=== PATIENT | male | born 1985 | race Caucasian/White ===

== ENCOUNTER 2017-01-01 17:28 | Emergency (ER) | payer BC, OTHER ==
[2017-01-01 17:49] VITALS: BP 136/93
--- NOTE | 2017-01-01 17:56 | EDM.PDOC ---
ED HPI GENERAL MEDICAL PROBLEM - General Chief Complaint: Lower Extremity Injury/Pain Stated Complaint: RT ANKLE INJURY Time Seen by Provider: 01/01/17 17:51 Source of Information: Reports: Patient History Limitations: Reports: No Limitations - History of Present Illness INITIAL COMMENTS - FREE TEXT/NARRATIVE: 31-year-old male presents the ED for evaluation of acute injury to his right ankle. 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 He is wearing a fairly high topped leather boot. He states it hurts to weight-bear since that time but for the most part he 's been sitting operating a machine up until an hour ago. Since that time he is barely able to put any weight on the foot because of severe pain lateral ankle. He denies hurting his ribs or his wrist or arm when he fell. He via surgery or injuries to his right ankle. Onset: Today Onset Date: 01/01/17 Onset Time: 13:00 Duration: Hour(s): Location: Reports: Lower Extremity, Right (Right lateral ankle) Quality: Reports: Ache, Throbbing Severity: Moderate Improves with: Reports: Rest Worsens with: Reports: Other (Weightbearing), Movement Context: Reports: Trauma (Severe inversion injury as he was stepping down from the machine approximately 3 feet.) Associated Symptoms: Reports: No Other Symptoms Treatments [employer]: Reports: Other (see below) Right Ankle Pain Score (Numeric/FACES): 7 - Related Data Allergies Allergy/AdvReac Type Severity Reaction Status Date / Time No Known Allergies Allergy Verified 01/01/17 17:49 Home Meds: Home Meds Albuterol [IJD: Ventolin HFA] 2 puff INH Q4H PRN 01/01/17 [History] buPROPion [Wellbutrin XL] 150 mg PO DAILY 01/01/17 [History] oxyCODONE HCl/Acetaminophen [Percocet 5-325 mg Tablet] 1 - 2 each PO Q4H PRN # 12 tablet 01/01/17 [Rx] Past Medical History Respiratory History: Reports: Asthma Psychiatric History: Reports: Depression Social & Family History - Living Situation & Occupation Occupation: Employed Review of Systems - Review of Systems Review Of Systems: See Below Constitutional: Reports: No Symptoms Eyes: Reports: No Symptoms Ears: Reports: No Symptoms Nose: Reports: No Symptoms Mouth/Throat: Reports: No Symptoms Respiratory: Reports: No Symptoms Cardiovascular: Reports: No Symptoms GI/Abdominal: Reports: No Symptoms Genitourinary: Reports: No Symptoms Musculoskeletal: Reports: Leg Pain (Right ankle pain at this time.), Other (All excess well) Skin: Reports: No Symptoms Neurological: Reports: No Symptoms Psychiatric: Reports: No Symptoms ED EXAM, GENERAL - Physical Exam Exam: See Below Exam Limited By: No Limitations General Appearance: Alert, WD/WN, No Apparent Distress Peripheral Pulses: 2+: Posterior Tibial (R), Dorsalis Pedis (R) Extremities: Other (Examination of his right lower extremity shows no pain on palpation of the proximal fibular head. No pain in the ankle on firm compression of the mid shaft tib-fib. No pain on compression of the medical tarsal's wort and particularly the fifth metatarsal head. No pain or obvious injury to the medial or deltoid ligament of the ankle. The swelling is limited to the lateral malleolus and the calcaneofibular ligament. He does have ability to dorsiflex and plantarflex the ankle but it is painful) Neurological: Alert, Oriented, CN II-XII Intact, Normal Cognition Psychiatric: Normal Affect, Normal Mood Skin Exam: Warm, Dry, Intact, Normal Color, No Rash Course - Vital Signs Last Recorded V/S: Last Vital Signs Temp 36.6 C 01/01/17 17:44 Pulse 91 01/01/17 17:44 Resp 12 01/01/17 17:44 BP 136/93 H 01/01/17 17:44 Pulse Ox 97 01/01/17 17:44 - Orders/Labs/Meds Orders: Active Orders 24 hr Category Date Time Status Ankle Min 3V Rt [CR] Stat Exams 01/01/17 17:57 Taken - Radiology Interpretation Free Text/Narrative:: 31-year-old male presents the ED for evaluation of severe inversion injury to his right ankle at occurred in the workplace about 1300 hrs. today. He was stepping down from machine approximately 3 feet from the ground when he landed wrong causing a severe inversion injury to his right ankle. He heard lots of pops and snaps and fell to the ground. He is wearing a fairly high top lace up leather boot which probably helped eliminate some of the range of motion. He was able to get back up in the machine where he has been for the last 4-1/2 hours. States it was throbbing but not too bothersome while he was driving and operating his machine. However once he stepped down out of the machine his pain in his ankle was quite noticeable. He states he has to tippytoe walk and can barely weight-bear. Reveals injury to the lateral aspect of the ankle. Medial ligaments are intact. No evidence of metatarsal injury. Plan x-ray right ankle to be done. - Re-Assessments/Exams Free Text/Narrative Re-Assessment/Exam: 01/01/17 19:00: X-rays of the right ankle are negative for fracture. He will therefore be placed in an riki wrap and a stirrup splint to aid his ambulation that way he can likely get away without the need for crutches. We'll continue Motrin 600 mg every 6 hours as needed for pain relief. I also provided 12 Percocet 5/325 milligram tablets one or 2 every 4-6 hours for pain relief for the next few days. 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 Departure - Departure Time of Disposition: 18:53 Disposition: Home, Self-Care 01 Condition: Fair Clinical Impression: Sprain of calcaneofibular ligament of right ankle Qualifiers: Encounter type: initial encounter Qualified Code(s): S93.411A - Sprain of calcaneofibular ligament of right ankle, initial encounter - Discharge Information Prescriptions: oxyCODONE HCl/Acetaminophen [Percocet 5-325 mg Tablet] 1 - 2 each PO Q4H PRN # 12 tablet PRN Reason: pain relief. Instructions: Ankle Sprain, [id number] Referrals: PCP,None [Primary Care Provider] - Forms: ED Department Discharge, ED Return to Work/School Form Additional Instructions: Evaluation in the emergency department today in regards to a severe inversion injury to your right ankle. X-rays were done and did not reveal any bony fractures. Ligaments are intact and stable on examination. Treatment is therefore time to heal. This usually is 10-14 days before you're able to walk up stairs comfortably. Riki wrap should be on during the day and off at night. Suggest elevating her foot as much as possible the next 2 days with ice pack to the area for one half hour out of every 4 hours. An Aircast splint was placed to help you ambulate. If ambulation is too painful then will require crutches for the first 4-5 days after injury. Suggest Motrin 600 mg every 6 hours to reduce pain and inflammation. May use Percocet tablet 1 or 2 every 4-6 hours when not at work and not controlled by Motrin alone. May return to work if alternative work duties are available to you otherwise she will be off work for the next 14 days. - My Orders Last 24 Hours: My Active Orders 01/01/17 17:57 Ankle Min 3V Rt [CR] Stat - Assessment/Plan Last 24 Hours: My Active Orders 01/01/17 17:57 Ankle Min 3V Rt [CR] Stat
--- NOTE | 2017-01-02 08:25 | CR ---
Right ankle: Four views of the right ankle were obtained. Plantar spur is seen. Ankle mortise is symmetric. Soft tissue swelling is identified. No acute fracture, dislocation or other bony abnormality is seen. Impression: 1. No acute bony abnormality is identified on right ankle exam. Diagnostic code #2
== END 2017-01-01 19:30 | disposition home or self-care (01) ==
LOC: JD.ED 17:28
DX: S93.411A Sprain of calcaneofibular ligament of right ankle, initial encounter (principal); J45.909 Unspecified asthma, uncomplicated; F32.9 Major depressive disorder, single episode, unspecified; Z79.899 Other long term (current) drug therapy; W31.9XXA Contact with unspecified machinery, initial encounter; X50.1XXA Overexertion from prolonged static or awkward postures, initial encounter
CPT/HCPCS: 73610-26-RT; 73610-RT; 99283